=== PATIENT | female | born 1960 | race Caucasian/White ===

== ENCOUNTER 2025-02-13 11:41 | Emergency (ER) | payer BC, MEDICARE ==
[~2025-02-13] VITALS: Ht 165.1 cm; Wt 61.9 kg
[2025-02-13 12:08] VITALS: BP 152/83; PULSE 83; RESP 16; TEMP 97.8; O2SAT 100
--- NOTE | 2025-02-13 12:37 | RADIOLOGY REPORT ---
CLINICAL INFORMATION: Knee pain. TECHNIQUE: 3 views of the right knee were obtained. COMPARISON: None FINDINGS: No acute fracture or dislocation. [id number] joint space narrowing in all 3 compartments. Small joint effusion. No significant soft tissue swelling visualized. IMPRESSION: 1. No evidence of acute bony abnormality. 2. Nonacute findings as described above.
--- NOTE | 2025-02-13 14:12 | Physician Documentation ---
History of Present Illness ~ Chief Complaint: Knee Pain Stated Complaint: R KNEE PAIN Time Seen by MD: 13:07 OK to notify your PCP?: Yes Primary Medical Doctor: Abhilash GUZMAN Source: patient Mode of Arrival: POV Exam Limitations: no limitations HPI In September, she fell on bilateral knees which the pain resolved after a couple of weeks. She is ambulatory. She reports that she has had an increasing right knee pain which returned since September and this has been worse over the past 4 weeks. She reports that the pain is excruciating and she has been seen by another ER, no imaging completed but she was given OxyContin. She reports that this medication is not helping with the pain and she is unable to take ibuprofen due to a gastric bypass. Tetanus witin 5 years: Yes Medication Reconciliation Allergies: Coded Allergies: No Known Allergies (Unverified , 02/13/25) Review of Systems All Other Systems at this time: Reviewed and Negative Physical Exam Vital Signs: RN Vital Signs have been reviewed: Yes, Temperature: 97.8, Source: Temporal, Heart Rate: 83, Respiratory Rate: 16, BP: 152/83, Pulse Oximetry: 100, Weight: 61.900 Oxygen Flow Rate: 0 Pulse Oximetry Reflects: adequate oxygenation Physical Exam General: Alert, no distress. HEENT: No injection, moist mucous membranes. Neck: Full range of motion. Respiratory: No respiratory distress, equal chest rise and fall. Chest: No accessory muscle use. Cardiovascular: Regular rate and rhythm. Gastrointestinal: Nondistended. Extremities: Full range motion of right knee, diffuse tenderness to palpation, no edema or erythema noted. Neurologic: Oriented x4. Psychiatric: Normal mood and affect. Skin: Normal color, warm and dry. Progress Results/Orders Reviewed/noted all lab results: Yes Results/Orders Orders - TIFFANY DAVIES MD Knee, Complete (02/13/25 12:12) Completed Orders - TIFFANY DAVIES MD Knee, Complete (02/13/25 12:12) Vital Signs 02/13/25 12:08 Temp 97.8 Pulse 83 Resp 16 B/P (MAP) 152/83 Pulse Ox 100 O2 Flow Rate 0 EKG/XRAY/CT/US/VASC/MRI Bone/Soft Tissue X-Ray (Ext.) : Additional Comment Right knee x-ray as interpreted by me; small joint effusion, no acute fracture, no soft tissue swelling, no dislocation, or foreign body. Medical Decision Making Additional information obtaine: old records Findings Physical exam is unremarkable other than some tenderness miss to palpation all over the knee. She has full range motion otherwise. X ray results reveal no fracture but there is some joint space narrowing indicating arthritis in all 3 compartments of the knee. There is also a small joint effusion. She has requesting an MRI. We discussed she needs to have the MRI done on an outpatient basis, she requested to speak with physician for 2nd opinion. Reports that she had a an appointment with her primary care yesterday but it got canceled and she has not been rescheduled yet. She reports that she was waiting 6 weeks for that appointment. I spoke with Dr. Davies and notified that we do not do MRIs out of the ER for these symptoms he will need to be done on an outpatient basis through her primary care provider. General Diff Dx:Considerations: Include: Fracture Knee Diff Dx:Considerations: Include: Gout, Hematoma, Sprain Ankle Diff Dx:Considerations: Include: Other Foot Diff Dx:Considerations: Include: Other Toe Diff Dx:Considerations: Include: Other Departure Disposition: 01 HOME / SELF CARE / HOMELESS Impression: Primary Impression: Knee pain Condition: Stable Discharge Instructions: Acute Knee Pain, Adult, Arthritis Additional Instructions: X-ray shows: FINDINGS: No acute fracture or dislocation. [id number]-[id number] joint space narrowing in all 3 compartments. Small joint effusion. No significant soft tissue swelling visualized. IMPRESSION: 1. No evidence of acute bony abnormality. 2. Nonacute findings as described above. As discussed you can use Tylenol and/or ibuprofen, diclofenac/Voltaren gel, ice, heat, elevation, rest, compression to help with your knee pain. Please follow up with a primary care provider in the next week and return back here for any new or worsening symptoms. Referrals: NO PRIMARY CARE PROVIDER (PCP) Education Educated: Patient Educated regarding: diagnosis, treatment, prognosis, need for follow up Additional Comment Medical Screen Exam This patient recieved a medical screening examination. After reviewing the individual's medical complaints with presenting symptoms and performing an appropriate physical examination, it was determined that no immediate life- threatening emergency medical condition is present. This individual is also not a women having contractions. I have reviewed this case [id number] with the HOUSE MOVER HELPER, including physical examination, laboratory and imaging results as appropriate. The patient was evaluated [id number] and I agree with the HOUSE MOVER HELPER's notes. I agree with the findings, evaluation and disposition. Signature Scribe Signature: . Attestation: Scribed for Tawnya Heath Synthetic Department Supervisor by Tawnya Ruelas NP . 02/13/25 14:17 Parts of this note were created using [employer] voice recognition software program. While efforts were made to correct any mistakes made by this voice recognition software program, nonsensical phrases may remain in this note. In addition, there may be errors and syntax, grammar, content and spelling. TAWNYA HEATH Feb 13, 2025 14:12 TIFFANY DAVIES MD Feb 13, 2025 18:34
== END 2025-02-13 14:57 | disposition home or self-care (01) ==
LOC: ER 11:42
DX: M25.561 Pain in right knee (principal)
CPT/HCPCS: 73564; 99283